=== PATIENT | male | born 1940 | race African-American/Black ===

== ENCOUNTER 2018-03-28 07:36 | Inpatient (IN) ==
[2018-03-28 09:23] LABS: Amorphous Crystals,Urine Occasional /HPF (Few); Apearance,Urine Slightly Hazy (Clear); Bacteria,Urine Many /HPF (Few); Bilirubin,Urine Negative (Negative); Blood, Urine Small mg/dL (Negative); Glucose,Urine (UA) Negative (Negative); Ketones,Urine Negative (Negative); Mucus,Urine Occasional /LPF (Occasional); Nitrite,Urine Negative (Negative); Protein,Urine 100 MG/DL; Squamous Epithelial Cell,Urine Occasional /HPF (0-10); Urine Color Yellow (Yellow); Urine Specific Gravity 1.023 (1.001-1.035); Urine Urobilinogen < 2.0 EU/DL (0.2-1.0); WBC,Urine 7 /HPF (0-6)
[2018-03-28 09:31] LABS: Basophils % 0.1 % (0.0-0.8); Hematocrit 22.1 VOL% (42.0-52.0); Immature Granulocytes % 1.4 %; Immature Granulocytes Absolute 0.35 #; Lymphocytes # 0.9 10*3/uL (1.4-4.0); Lymphocytes % 3.7 % (21.2-54.2); Mean Corpuscular Hemoglobin 20 PG (27-34); Mean Corpuscular Volume 67.6 FL (87-102); Mean Platelet Volume 10.1 FL (9.6-12.0); Monocytes # 2.6 10*3/uL (0.11-0.8); NRBC # 0.03 10*3/uL; Neutrophils # 21.8 10*3/uL (1.4-7.4); Neutrophils % 84.8 % (38.7-73.9); Platelet Count 374 T/CUMM (130-400); Red Blood Count 3.27 MC/CUMM (3.8-5.5); Red Cell Distribution Width 21.4 % (9.3-17.3); White Blood Count 25.7 T/CUMM (4-12)
[2018-03-28 09:46] LABS: Hemoglobin 6.4 GM/DL (14.0-18.0)
[2018-03-28 09:47] LABS: Albumin 2.7 G/DL (3.4-5.0); Bilirubin,Total 0.8 MG/DL (0.2-1.0); Calcium 8.7 MG/DL (8.5-10.1); Lactic Acid 1.8 MMOL/L (0.4-2.0); Osmolality,Calculated 280.3 MOS/KG (273-304); Potassium 3.6 MMOL/L (3.5-5.1); Total Protein 6.9 G/DL (6.4-8.3)
[2018-03-28 09:59] LABS: Anisocytosis 2+; Band Neutrophils 12 % (0-10); Lymphocytes 4 % (20-55); Nucleated Red Blood Cells 2 (0-5); Platelet Estimate Normal; Poikilocytosis 1+; Segmented Neutrophils 77 % (50-85); Smudge Cells Moderate; Total Cells Counted 100
[2018-03-28 10:00] LABS: Hypochromasia 1+; Polychromasia 1+; Target Cells Few
[2018-03-28] MEDS ORDERED: LEVOFLOXACIN INJ 750 MG in PREMIX 1 EACH IV STA (10:25)
[2018-03-28] MEDS ORDERED: SODIUM CHLORIDE 0.9% 1,000 ML IV PRN (11:21)
[2018-03-28] MEDS ORDERED: ONDANSETRON 4 MG/2 ML VIAL IV PRN (11:24)
[2018-03-28] MEDS ORDERED: PANTOPRAZOLE 40 MG TABLET PO SCH ×2 (11:30→14:30)
[2018-03-28] MEDS ORDERED: MAGNESIUM HYDROXIDE SUSP 30 ML UDCUP PO PRN (14:18)
[2018-03-28] MEDS: PIPERACILLIN/TAZOBACTAM 3,375 MG in SODIUM CHLORIDE 0.9% 100 ML IV SCH (18:32)
[2018-03-28] MEDS ORDERED: FUROSEMIDE 20 MG/2 ML VIAL IV ONE (18:59)
[2018-03-28] MEDS: ACETAMINOPHEN 325 MG TABLET PO PRN (20:06)
[2018-03-28] MEDS: DOCUSATE SODIUM 100 MG CAPSULE PO SCH (21:19)
[2018-03-28] MEDS: levETIRAcetam 500 MG TABLET PO SCH (21:19)
[2018-03-28] MEDS: TAMSULOSIN 0.4 MG CAPSULE PO SCH (21:19)
[2018-03-28] MEDS: CARVEDILOL 6.25 MG TABLET PO SCH (21:20)
[2018-03-28] MEDS: POLYETHYLENE GLYCOL POWDER 17 GM PACK PO SCH (21:20)
[2018-03-28] MEDS: DONEPEZIL 5 MG TABLET PO SCH (21:20)
[2018-03-28] MEDS: PANTOPRAZOLE 40 MG TABLET PO SCH (21:20)
[2018-03-29 01:17] LABS: Hemoglobin 8.2 GM/DL (14.0-18.0)
[2018-03-29] MEDS: PIPERACILLIN/TAZOBACTAM 3,375 MG in SODIUM CHLORIDE 0.9% 100 ML IV SCH ×3 (02:43→19:36)
[2018-03-29 05:45] LABS: Basophils % 0.2 % (0.0-0.8); Eosinophils % 0.2 % (0.00-10.9); Hematocrit 25.2 VOL% (42.0-52.0); Hemoglobin 8.1 GM/DL (14.0-18.0); Immature Granulocytes % 0.8 %; Immature Granulocytes Absolute 0.13 #; Lymphocytes # 1.2 10*3/uL (1.4-4.0); Lymphocytes % 7.3 % (21.2-54.2); Mean Corpuscular HGB Conc 32.1 GM/DL (32-36); Mean Corpuscular Hemoglobin 22 PG (27-34); Mean Corpuscular Volume 69.2 FL (87-102); Mean Platelet Volume 11.3 FL (9.6-12.0); Monocytes # 1.8 10*3/uL (0.11-0.8); Monocytes % 10.9 % (1.7-12.7); NRBC # 0.06 10*3/uL; Neutrophils # 13.5 10*3/uL (1.4-7.4); Neutrophils % 80.6 % (38.7-73.9); Platelet Count 365 T/CUMM (130-400); Red Blood Count 3.64 MC/CUMM (3.8-5.5); Red Cell Distribution Width 24.2 % (9.3-17.3); White Blood Count 16.7 T/CUMM (4-12)
[2018-03-29 06:20] LABS: Folate 6.4 NG/ML (5.4-24.0); Vitamin B12 817 PG/ML (211-911)
[2018-03-29 06:22] LABS: Hypochromasia 1+; Platelet Estimate Adequate
[2018-03-29 06:35] LABS: Calcium 8.4 MG/DL (8.5-10.1); Osmolality,Calculated 280.3 MOS/KG (273-304); Potassium 3.1 MMOL/L (3.5-5.1)
[2018-03-29 06:36] LABS: % Iron Saturation 11.1 % (18-50)
[2018-03-29 07:04] LABS: Basophils % 0.2 % (0.0-0.8); Eosinophils % 0.2 % (0.00-10.9); Hematocrit 25.9 VOL% (42.0-52.0); Immature Granulocytes % 0.7 %; Immature Granulocytes Absolute 0.12 #; Lymphocytes # 1.2 10*3/uL (1.4-4.0); Lymphocytes % 7.2 % (21.2-54.2); Mean Corpuscular HGB Conc 30.9 GM/DL (32-36); Mean Corpuscular Hemoglobin 22 PG (27-34); Mean Corpuscular Volume 70.6 FL (87-102); Mean Platelet Volume 11.1 FL (9.6-12.0); Monocytes # 1.8 10*3/uL (0.11-0.8); Monocytes % 10.8 % (1.7-12.7); NRBC # 0.06 10*3/uL; Neutrophils # 13.8 10*3/uL (1.4-7.4); Neutrophils % 80.9 % (38.7-73.9); Platelet Count 357 T/CUMM (130-400); Red Blood Count 3.67 MC/CUMM (3.8-5.5); Red Cell Distribution Width 24.3 % (9.3-17.3)
[2018-03-29 07:29] LABS: Hypochromasia 1+; Platelet Estimate Adequate
[2018-03-29 07:30] LABS: Ovalocytes Slight
[2018-03-29] MEDS: POTASSIUM CHLORIDE RIDER 10 MEQ in PREMIX 1 EACH IV SCH ×4 (07:32→15:12)
[2018-03-29 08:16] LABS: Sedimentation Rate-Westergren 45 MM/HR (0-20)
[2018-03-29 09:58] LABS: Hemoglobin A1 (Alkaline) 97.8 % (96.5-98.5); Hemoglobin A2 (Alkaline) 2.2 % (1.5-3.5)
[2018-03-29] MEDS ORDERED: PROPOFOL 200 MG/20 ML VIAL IV ONE (11:24)
[2018-03-29] MEDS ORDERED: PHENYLEPHRINE 1 MG/10 ML SYRINGE IV ONE (11:24)
[2018-03-29] MEDS ORDERED: LIDOCAINE 1% 5 ML VIAL ONE (11:24)
[2018-03-29] MEDS: CARVEDILOL 6.25 MG TABLET PO SCH ×2 (15:11→22:21)
[2018-03-29] MEDS: DOCUSATE SODIUM 100 MG CAPSULE PO SCH ×2 (15:11→22:20)
[2018-03-29] MEDS: levETIRAcetam 500 MG TABLET PO SCH ×2 (15:11→22:21)
[2018-03-29] MEDS: PANTOPRAZOLE 40 MG TABLET PO SCH ×2 (15:58→22:21)
[2018-03-29] MEDS: LOSARTAN 25 MG TABLET PO SCH (15:58)
[2018-03-29] MEDS: METOCLOPRAMIDE 10 MG/10 ML UDCUP PO SCH ×2 (15:58→22:20)
[2018-03-29] MEDS: ESCITALOPRAM 10 MG TABLET PO SCH (15:59)
[2018-03-29] MEDS: ASPIRIN EC 81 MG TABLET PO SCH (15:59)
[2018-03-29] MEDS: CALCIUM (CARBONATE)/VITAMIN D 500 MG-200 UNIT TABLET PO SCH (15:59)
[2018-03-29] MEDS: POLYETHYLENE GLYCOL POWDER 17 GM PACK PO SCH (22:20)
[2018-03-29] MEDS: DONEPEZIL 5 MG TABLET PO SCH (22:21)
[2018-03-29] MEDS: TAMSULOSIN 0.4 MG CAPSULE PO SCH (22:21)
[2018-03-30] MEDS: PIPERACILLIN/TAZOBACTAM 3,375 MG in SODIUM CHLORIDE 0.9% 100 ML IV SCH ×2 (01:50→10:41)
[2018-03-30] MEDS: METOCLOPRAMIDE 10 MG/10 ML UDCUP PO SCH ×4 (06:43→22:21)
[2018-03-30 09:16] LABS: Basophils % 0.2 % (0.0-0.8); Eosinophils # 0.1 10*3/uL (0.0-0.87); Hematocrit 26.1 VOL% (42.0-52.0); Immature Granulocytes % 0.4 %; Immature Granulocytes Absolute 0.05 #; Lymphocytes # 0.9 10*3/uL (1.4-4.0); Lymphocytes % 7.1 % (21.2-54.2); Mean Corpuscular HGB Conc 30.7 GM/DL (32-36); Mean Corpuscular Hemoglobin 22 PG (27-34); Mean Corpuscular Volume 70.9 FL (87-102); Mean Platelet Volume 9.9 FL (9.6-12.0); Monocytes # 1.4 10*3/uL (0.11-0.8); Monocytes % 11.1 % (1.7-12.7); NRBC # 0.03 10*3/uL; Neutrophils # 10.1 10*3/uL (1.4-7.4); Neutrophils % 80.2 % (38.7-73.9); Platelet Count 334 T/CUMM (130-400); Red Blood Count 3.68 MC/CUMM (3.8-5.5); White Blood Count 12.6 T/CUMM (4-12)
[2018-03-30 09:33] LABS: Hypochromasia 1+; Platelet Estimate Adequate
[2018-03-30 09:54] LABS: Calcium 8.3 MG/DL (8.5-10.1); Potassium 3.5 MMOL/L (3.5-5.1)
[2018-03-30] MEDS: levETIRAcetam 500 MG TABLET PO SCH ×2 (10:41→22:21)
[2018-03-30] MEDS: IRON (CARBONYL)/VIT C/B12/FA TABLET PO SCH (10:41)
[2018-03-30] MEDS: CALCIUM (CARBONATE)/VITAMIN D 500 MG-200 UNIT TABLET PO SCH (10:41)
[2018-03-30] MEDS: CARVEDILOL 6.25 MG TABLET PO SCH ×2 (10:42→22:22)
[2018-03-30] MEDS: DOCUSATE SODIUM 100 MG CAPSULE PO SCH ×2 (10:42→22:20)
[2018-03-30] MEDS: ASPIRIN EC 81 MG TABLET PO SCH (10:42)
[2018-03-30] MEDS: PANTOPRAZOLE 40 MG TABLET PO SCH ×2 (10:42→22:21)
[2018-03-30] MEDS: LOSARTAN 25 MG TABLET PO SCH (10:42)
[2018-03-30] MEDS: ESCITALOPRAM 10 MG TABLET PO SCH (10:42)
[2018-03-30] MEDS ORDERED: CIPROFLOXACIN 100 MG/ML 100 ML/BOTTLE PO SCH (15:00)
[2018-03-30] MEDS: CIPROFLOXACIN 100 MG/ML 100 ML/BOTTLE PO SCH (17:47)
[2018-03-30] MEDS: TAMSULOSIN 0.4 MG CAPSULE PO SCH (22:20)
[2018-03-30] MEDS: DONEPEZIL 5 MG TABLET PO SCH (22:20)
[2018-03-30] MEDS: POLYETHYLENE GLYCOL POWDER 17 GM PACK PO SCH (22:22)
[2018-03-31 05:31] LABS: Basophils % 0.3 % (0.0-0.8); Eosinophils # 0.1 10*3/uL (0.0-0.87); Eosinophils % 1.5 % (0.00-10.9); Hematocrit 24.8 VOL% (42.0-52.0); Hemoglobin 7.6 GM/DL (14.0-18.0); Immature Granulocytes % 0.7 %; Immature Granulocytes Absolute 0.07 #; Lymphocytes # 1.2 10*3/uL (1.4-4.0); Lymphocytes % 13.2 % (21.2-54.2); Mean Corpuscular HGB Conc 30.6 GM/DL (32-36); Mean Corpuscular Hemoglobin 21 PG (27-34); Mean Corpuscular Volume 69.5 FL (87-102); Mean Platelet Volume 10.5 FL (9.6-12.0); Monocytes # 1.2 10*3/uL (0.11-0.8); Monocytes % 12.8 % (1.7-12.7); NRBC # 0.03 10*3/uL; Neutrophils # 6.7 10*3/uL (1.4-7.4); Neutrophils % 71.5 % (38.7-73.9); Platelet Count 344 T/CUMM (130-400); Red Blood Count 3.57 MC/CUMM (3.8-5.5); Red Cell Distribution Width 25.7 % (9.3-17.3); White Blood Count 9.4 T/CUMM (4-12)
[2018-03-31 05:58] LABS: Acanthocytes Few; Hypochromasia 2+; Microcytosis 2+; Target Cells Few
[2018-03-31 05:59] LABS: Platelet Estimate Normal
[2018-03-31 06:00] LABS: Spherocytes Slight
[2018-03-31] MEDS: CIPROFLOXACIN 100 MG/ML 100 ML/BOTTLE PO SCH ×2 (06:39→17:33)
[2018-03-31] MEDS ORDERED: SODIUM CHLORIDE 0.9% 1,000 ML IV PRN (08:38)
[2018-03-31] MEDS ORDERED: FUROSEMIDE 20 MG/2 ML VIAL IV PRN (08:38)
[2018-03-31] MEDS: LOSARTAN 25 MG TABLET PO SCH (09:07)
[2018-03-31] MEDS: CARVEDILOL 6.25 MG TABLET PO SCH ×2 (09:07→21:56)
[2018-03-31] MEDS: METOCLOPRAMIDE 10 MG/10 ML UDCUP PO SCH ×4 (09:07→21:55)
[2018-03-31] MEDS: ASPIRIN EC 81 MG TABLET PO SCH (09:07)
[2018-03-31] MEDS: CALCIUM (CARBONATE)/VITAMIN D 500 MG-200 UNIT TABLET PO SCH (09:07)
[2018-03-31] MEDS: DOCUSATE SODIUM 100 MG CAPSULE PO SCH ×2 (09:07→21:54)
[2018-03-31] MEDS: levETIRAcetam 500 MG TABLET PO SCH ×2 (09:07→21:54)
[2018-03-31] MEDS: ESCITALOPRAM 10 MG TABLET PO SCH (09:07)
[2018-03-31] MEDS: IRON (CARBONYL)/VIT C/B12/FA TABLET PO SCH (09:07)
[2018-03-31] MEDS: PANTOPRAZOLE 40 MG TABLET PO SCH ×2 (09:08→21:54)
[2018-03-31] MEDS: ACETAMINOPHEN 325 MG TABLET PO PRN (21:53)
[2018-03-31] MEDS: DONEPEZIL 5 MG TABLET PO SCH (21:53)
[2018-03-31] MEDS: TAMSULOSIN 0.4 MG CAPSULE PO SCH (21:55)
[2018-03-31] MEDS: POLYETHYLENE GLYCOL POWDER 17 GM PACK PO SCH (21:55)
[2018-03-31 22:25] LABS: Hematocrit 31.9 VOL% (42.0-52.0)
[2018-03-31 22:26] LABS: Hemoglobin 10.2 GM/DL (14.0-18.0)
[2018-04-01] MEDS: CIPROFLOXACIN 100 MG/ML 100 ML/BOTTLE PO SCH (06:12)
[2018-04-01] MEDS: METOCLOPRAMIDE 10 MG/10 ML UDCUP PO SCH ×2 (06:44→11:40)
[2018-04-01 07:15] LABS: Basophils % 0.4 % (0.0-0.8); Eosinophils # 0.2 10*3/uL (0.0-0.87); Eosinophils % 2.1 % (0.00-10.9); Hematocrit 33.2 VOL% (42.0-52.0); Hemoglobin 10.2 GM/DL (14.0-18.0); Immature Granulocytes % 0.7 %; Immature Granulocytes Absolute 0.06 #; Lymphocytes # 1.6 10*3/uL (1.4-4.0); Lymphocytes % 17.4 % (21.2-54.2); Mean Corpuscular HGB Conc 30.7 GM/DL (32-36); Mean Corpuscular Hemoglobin 23 PG (27-34); Mean Corpuscular Volume 73.6 FL (87-102); Monocytes # 1.2 10*3/uL (0.11-0.8); Monocytes % 13.2 % (1.7-12.7); NRBC # 0.03 10*3/uL; Neutrophils # 6.1 10*3/uL (1.4-7.4); Neutrophils % 66.2 % (38.7-73.9); Platelet Count 352 T/CUMM (130-400); Red Blood Count 4.51 MC/CUMM (3.8-5.5); Red Cell Distribution Width 25.5 % (9.3-17.3); White Blood Count 9.2 T/CUMM (4-12)
[2018-04-01 07:40] LABS: Acanthocytes Few; Hypochromasia 2+; Microcytosis 1+; Poikilocytosis 1+; Polychromasia Slight; Target Cells Few
[2018-04-01 07:41] LABS: Anisocytosis 1+; Platelet Estimate Normal
[2018-04-01] MEDS: PANTOPRAZOLE 40 MG TABLET PO SCH (09:52)
[2018-04-01] MEDS: levETIRAcetam 500 MG TABLET PO SCH (09:52)
[2018-04-01] MEDS: ASPIRIN EC 81 MG TABLET PO SCH (09:53)
[2018-04-01] MEDS: CALCIUM (CARBONATE)/VITAMIN D 500 MG-200 UNIT TABLET PO SCH (09:53)
[2018-04-01] MEDS: ESCITALOPRAM 10 MG TABLET PO SCH (09:53)
[2018-04-01] MEDS: DOCUSATE SODIUM 100 MG CAPSULE PO SCH (09:53)
[2018-04-01] MEDS: IRON (CARBONYL)/VIT C/B12/FA TABLET PO SCH (09:53)
[2018-04-01] MEDS: LOSARTAN 25 MG TABLET PO SCH (09:53)
[2018-04-01] MEDS: CARVEDILOL 6.25 MG TABLET PO SCH (09:54)
[2018-04-01 15:38] VITALS: BP 138/71
== END 2018-04-01 13:52 | DRG 377 ==
LOC: EDUNIT# → EDBD → N.ED 07:36 → SUATTDRO 11:24 → N.EDINP 11:24 → N.5E 12:11
PROVIDERS: ADMIT Hospitalist; ATTEND Internal Medicine

== ENCOUNTER 2018-04-09 12:37 | Inpatient (IN) ==
[2018-04-09] MEDS ORDERED: LEVOFLOXACIN INJ 750 MG in PREMIX 1 EACH IV STA (13:01)
[2018-04-09] MEDS ORDERED: ONDANSETRON 4 MG/2 ML VIAL IV STA (13:01)
[2018-04-09] MEDS ORDERED: methylPREDNISolone SOD SUC 125 MG/2 ML VIAL IV STA (13:01)
[2018-04-09] MEDS ORDERED: FUROSEMIDE 100 MG/10 ML VIAL IV STA (13:01)
[2018-04-09] MEDS ORDERED: ALBUTEROL 2.5 MG/3 ML NEB RESP TX SCH (13:30)
[2018-04-09 13:48] LABS: Basophils % 0.3 % (0.0-0.8); Hematocrit 37.7 VOL% (42.0-52.0); Hemoglobin 11.7 GM/DL (14.0-18.0); Immature Granulocytes % 0.8 %; Lymphocytes # 0.6 10*3/uL (1.4-4.0); Lymphocytes % 5.2 % (21.2-54.2); Mean Corpuscular Hemoglobin 23 PG (27-34); Mean Corpuscular Volume 74.5 FL (87-102); Mean Platelet Volume 10.6 FL (9.6-12.0); Monocytes # 0.4 10*3/uL (0.11-0.8); Monocytes % 3.3 % (1.7-12.7); Neutrophils # 11.1 10*3/uL (1.4-7.4); Neutrophils % 90.4 % (38.7-73.9); Platelet Count 575 T/CUMM (130-400); Red Blood Count 5.06 MC/CUMM (3.8-5.5); Red Cell Distribution Width 27.4 % (9.3-17.3); White Blood Count 12.3 T/CUMM (4-12)
[2018-04-09 13:57] LABS: INR 1.4; PT Patient Result 15.1 SECS; Partial Thromboplastin Time 25.7 SECS (0-40)
[2018-04-09 14:09] LABS: Alanine Aminotransferase 46 U/L (16-61); Albumin 2.8 G/DL (3.4-5.0); Alkaline Phosphatase 195 U/L (45-117); Aspartate Amino Transferase 41 U/L (0-37); Blood Urea Nitrogen 10 MG/DL (7-18); Calcium 9.1 MG/DL (8.5-10.1); Glucose 167 MG/DL (74-106); Osmolality,Calculated 283.3 MOS/KG (273-304); Potassium 3.7 MMOL/L (3.5-5.1); Sodium 141 MMOL/L (136-145)
[2018-04-09] MEDS ORDERED: hydrALAZINE 20 MG/1 ML VIAL IV STA (14:10)
[2018-04-09 14:16] LABS: Apearance,Urine CLEAR (Clear); Bacteria,Urine Occasional /HPF (Few); Bilirubin,Urine Negative (Negative); Blood, Urine Negative (Negative); Glucose,Urine (UA) Negative (Negative); Ketones,Urine Negative (Negative); Nitrite,Urine Negative (Negative); Protein,Urine Negative; RBC,Urine 1 /HPF (0-4); Urine Color Straw (Yellow); Urine Specific Gravity 1.004 (1.001-1.035); Urine Urobilinogen < 2.0 EU/DL (0.2-1.0); WBC,Urine 1 /HPF (0-6)
[2018-04-09] MEDS ORDERED: ONDANSETRON 4 MG/2 ML VIAL IV PRN (15:30)
[2018-04-09] MEDS ORDERED: ACETAMINOPHEN 325 MG TABLET PO PRN (15:30)
[2018-04-09] MEDS ORDERED: ALBUTEROL/IPRATROPIUM 3 ML NEB RESP TX PRN (15:33)
[2018-04-09] MEDS ORDERED: hydrALAZINE 20 MG/1 ML VIAL IV PRN (15:50)
[2018-04-09] MEDS: FUROSEMIDE 40 MG/4 ML VIAL IV SCH (16:40)
[2018-04-09] MEDS: cefTRIAXone 1,000 MG in SYRINGE 1 EACH IV SCH (16:44)
[2018-04-09] MEDS: AZITHROMYCIN INJ 500 MG in SODIUM CHLORIDE 0.9% 250 ML IV SCH (16:51)
[2018-04-09] MEDS: ALBUTEROL 2.5 MG/3 ML NEB RESP TX SCH (19:23)
[2018-04-10] MEDS: ALBUTEROL 2.5 MG/3 ML NEB RESP TX SCH ×4 (00:27→19:13)
[2018-04-10 05:17] LABS: Basophils % 0.1 % (0.0-0.8); Hematocrit 35.6 VOL% (42.0-52.0); Hemoglobin 11.2 GM/DL (14.0-18.0); Immature Granulocytes % 0.7 %; Immature Granulocytes Absolute 0.07 #; Lymphocytes # 0.5 10*3/uL (1.4-4.0); Mean Corpuscular HGB Conc 31.5 GM/DL (32-36); Mean Corpuscular Hemoglobin 23 PG (27-34); Mean Corpuscular Volume 72.1 FL (87-102); Mean Platelet Volume 10.2 FL (9.6-12.0); Monocytes # 0.4 10*3/uL (0.11-0.8); Monocytes % 3.8 % (1.7-12.7); Neutrophils # 9.2 10*3/uL (1.4-7.4); Neutrophils % 90.4 % (38.7-73.9); Platelet Count 551 T/CUMM (130-400); Red Blood Count 4.94 MC/CUMM (3.8-5.5); Red Cell Distribution Width 27.4 % (9.3-17.3); White Blood Count 10.2 T/CUMM (4-12)
[2018-04-10 05:52] LABS: Calcium 8.6 MG/DL (8.5-10.1); Potassium 3.1 MMOL/L (3.5-5.1)
[2018-04-10 06:14] LABS: Hypochromasia 2+
[2018-04-10 06:15] LABS: Microcytosis 2+; Ovalocytes Slight; Platelet Estimate Increased; Target Cells Few
[2018-04-10] MEDS: FUROSEMIDE 40 MG/4 ML VIAL IV SCH (08:04)
[2018-04-10] MEDS ORDERED: PANTOPRAZOLE 40 MG TABLET PO SCH (09:00)
[2018-04-10] MEDS: POTASSIUM CHLORIDE INJ 30 MEQ in SODIUM CHLORIDE 0.9% 1,000 ML IV SCH (10:55)
[2018-04-10] MEDS: cefTRIAXone 1,000 MG in SYRINGE 1 EACH IV SCH (17:48)
[2018-04-10] MEDS: AZITHROMYCIN INJ 500 MG in SODIUM CHLORIDE 0.9% 250 ML IV SCH (17:49)
[2018-04-11] MEDS: ALBUTEROL 2.5 MG/3 ML NEB RESP TX SCH ×4 (00:16→19:27)
[2018-04-11] MEDS: POTASSIUM CHLORIDE INJ 30 MEQ in SODIUM CHLORIDE 0.9% 1,000 ML IV SCH ×2 (04:12→21:21)
[2018-04-11 06:39] LABS: Calcium 8.5 MG/DL (8.5-10.1); Osmolality,Calculated 290.6 MOS/KG (273-304); Potassium 3.5 MMOL/L (3.5-5.1)
[2018-04-11] MEDS ORDERED: AZITHROMYCIN 250 MG TABLET PO SCH (09:00)
[2018-04-11] MEDS: AZITHROMYCIN INJ 500 MG in SODIUM CHLORIDE 0.9% 250 ML IV SCH (11:21)
[2018-04-11] MEDS: cefTRIAXone 1,000 MG in SYRINGE 1 EACH IV SCH (16:37)
[2018-04-12] MEDS: ALBUTEROL 2.5 MG/3 ML NEB RESP TX SCH ×4 (00:15→19:15)
[2018-04-12 05:43] LABS: Calcium 8.6 MG/DL (8.5-10.1); Osmolality,Calculated 293.4 MOS/KG (273-304); Potassium 3.8 MMOL/L (3.5-5.1)
[2018-04-12] MEDS: AZITHROMYCIN INJ 500 MG in SODIUM CHLORIDE 0.9% 250 ML IV SCH (12:17)
[2018-04-12] MEDS: POTASSIUM CHLORIDE INJ 30 MEQ in SODIUM CHLORIDE 0.9% 1,000 ML IV SCH (18:04)
[2018-04-12] MEDS: cefTRIAXone 1,000 MG in SYRINGE 1 EACH IV SCH (18:05)
[2018-04-13] MEDS: ALBUTEROL 2.5 MG/3 ML NEB RESP TX SCH ×4 (00:24→19:25)
[2018-04-13] MEDS: AZITHROMYCIN INJ 500 MG in SODIUM CHLORIDE 0.9% 250 ML IV SCH (10:45)
[2018-04-13] MEDS: cefTRIAXone 1,000 MG in SYRINGE 1 EACH IV SCH (22:21)
[2018-04-14] MEDS: ALBUTEROL 2.5 MG/3 ML NEB RESP TX SCH ×4 (00:10→18:59)
[2018-04-14 05:24] LABS: Calcium 8.8 MG/DL (8.5-10.1); Osmolality,Calculated 308.4 MOS/KG (273-304)
[2018-04-14] MEDS: POTASSIUM CHLORIDE INJ 30 MEQ in SODIUM CHLORIDE 0.9% 1,000 ML IV SCH ×2 (06:22→09:48)
[2018-04-14] MEDS: DEXTROSE 5% 1,000 ML IV SCH (08:49)
[2018-04-14] MEDS ORDERED: GLUCAGON 1 MG VIAL IM PRN (11:32)
[2018-04-14] MEDS ORDERED: DEXTROSE 50% 25 GM/50 ML VIAL IV PRN (11:32)
[2018-04-14] MEDS: INSULIN REGULAR 100 UNIT/ML SUBCUT SCH ×2 (11:47→18:32)
[2018-04-14] MEDS: cefTRIAXone 1,000 MG in SYRINGE 1 EACH IV SCH (22:33)
[2018-04-15] MEDS: ALBUTEROL 2.5 MG/3 ML NEB RESP TX SCH ×4 (00:29→19:13)
[2018-04-15] MEDS: INSULIN REGULAR 100 UNIT/ML SUBCUT SCH ×4 (04:24→17:36)
[2018-04-15 06:39] LABS: Calcium 8.6 MG/DL (8.5-10.1); Osmolality,Calculated 308.6 MOS/KG (273-304); Potassium 3.6 MMOL/L (3.5-5.1)
[2018-04-15] MEDS ORDERED: FUROSEMIDE 40 MG/4 ML VIAL IV ONE (08:02)
[2018-04-15] MEDS: DEXTROSE 5% 1,000 ML IV SCH (08:16)
[2018-04-15] MEDS: ACETAMINOPHEN 325 MG/10.15 ML UDCUP PO PRN (12:21)
[2018-04-15] MEDS: FUROSEMIDE 20 MG/2 ML VIAL IV SCH (15:11)
[2018-04-15] MEDS: cefTRIAXone 1,000 MG in SYRINGE 1 EACH IV SCH (21:25)
[2018-04-15] MEDS: levETIRAcetam LIQUID 100 MG/ML 30 ML/BOTTLE NG SCH (21:25)
[2018-04-16] MEDS: ALBUTEROL 2.5 MG/3 ML NEB RESP TX SCH ×4 (00:39→19:30)
[2018-04-16] MEDS: INSULIN REGULAR 100 UNIT/ML SUBCUT SCH ×4 (00:44→19:03)
[2018-04-16 05:15] LABS: Calcium 8.8 MG/DL (8.5-10.1); Osmolality,Calculated 311.6 MOS/KG (273-304); Potassium 3.3 MMOL/L (3.5-5.1)
[2018-04-16] MEDS: FUROSEMIDE 20 MG/2 ML VIAL IV SCH (09:29)
[2018-04-16] MEDS: levETIRAcetam LIQUID 100 MG/ML 30 ML/BOTTLE NG SCH ×2 (09:29→22:20)
[2018-04-16 11:20] LABS: ABG Base Excess 9.8 MMOL/L (-2.5-2.5); ABG HCO3 33.5 MMOL/L (20-26); ABG Oxygen Saturation 96.9 % (95-100); ABG PH 7.574 (7.35-7.45); ABG PO2 84.7 MM HG (80-95); ABG TCO2 28.8 MMOL/L (23-27)
[2018-04-16] MEDS: POTASSIUM CHLORIDE 20 MEQ/15 ML UDCUP PER TUBE PRN ×3 (11:50→16:45)
[2018-04-17] MEDS: cefTRIAXone 1,000 MG in SYRINGE 1 EACH IV SCH ×2 (00:05→21:38)
[2018-04-17] MEDS: INSULIN REGULAR 100 UNIT/ML SUBCUT SCH ×4 (00:33→18:59)
[2018-04-17] MEDS: ALBUTEROL 2.5 MG/3 ML NEB RESP TX SCH ×4 (01:14→19:17)
[2018-04-17 06:37] LABS: Calcium 8.8 MG/DL (8.5-10.1); Osmolality,Calculated 301.1 MOS/KG (273-304); Potassium 3.5 MMOL/L (3.5-5.1)
[2018-04-17] MEDS: levETIRAcetam LIQUID 100 MG/ML 30 ML/BOTTLE NG SCH ×2 (08:31→21:38)
[2018-04-17] MEDS: POTASSIUM CHLORIDE 20 MEQ/15 ML UDCUP PER TUBE PRN ×2 (08:31→11:06)
[2018-04-17] MEDS: ACETAMINOPHEN 325 MG/10.15 ML UDCUP PO PRN (12:22)
[2018-04-17] MEDS ORDERED: IBUPROFEN 100 MG/5 ML UDCUP PO PRN (14:23)
[2018-04-17 17:04] LABS: Apearance,Urine Slightly Hazy (Clear); Bacteria,Urine Occasional /HPF (Few); Bilirubin,Urine Negative (Negative); Blood, Urine Negative (Negative); Glucose,Urine (UA) Negative (Negative); Ketones,Urine Negative (Negative); Mucus,Urine Occasional /LPF (Occasional); Nitrite,Urine Negative (Negative); Protein,Urine 100 MG/DL; RBC,Urine 3 /HPF (0-4); Squamous Epithelial Cell,Urine Occasional /HPF (0-10); Urine Color Yellow (Yellow); Urine Specific Gravity 1.016 (1.001-1.035); Urine Urobilinogen < 2.0 EU/DL (0.2-1.0); WBC,Urine 2 /HPF (0-6)
[2018-04-18] MEDS: INSULIN REGULAR 100 UNIT/ML SUBCUT SCH ×4 (01:13→18:31)
[2018-04-18] MEDS: ALBUTEROL 2.5 MG/3 ML NEB RESP TX SCH ×5 (01:14→19:40)
[2018-04-18 04:29] LABS: Basophils % 0.3 % (0.0-0.8); Eosinophils # 0.3 10*3/uL (0.0-0.87); Eosinophils % 1.8 % (0.00-10.9); Hematocrit 34.6 VOL% (42.0-52.0); Hemoglobin 10.2 GM/DL (14.0-18.0); Immature Granulocytes % 0.5 %; Immature Granulocytes Absolute 0.08 #; Lymphocytes # 1.2 10*3/uL (1.4-4.0); Lymphocytes % 7.9 % (21.2-54.2); Mean Corpuscular HGB Conc 29.5 GM/DL (32-36); Mean Corpuscular Hemoglobin 22 PG (27-34); Mean Corpuscular Volume 75.2 FL (87-102); Monocytes # 1.4 10*3/uL (0.11-0.8); Monocytes % 9.2 % (1.7-12.7); Neutrophils # 11.8 10*3/uL (1.4-7.4); Neutrophils % 80.3 % (38.7-73.9); Platelet Count 361 T/CUMM (130-400); White Blood Count 14.7 T/CUMM (4-12)
[2018-04-18] MEDS: levETIRAcetam LIQUID 100 MG/ML 30 ML/BOTTLE NG SCH ×2 (08:27→21:55)
[2018-04-18] MEDS: cefTRIAXone 1,000 MG in SYRINGE 1 EACH IV SCH (21:43)
[2018-04-19] MEDS: ALBUTEROL 2.5 MG/3 ML NEB RESP TX SCH ×4 (01:50→19:19)
[2018-04-19] MEDS: INSULIN REGULAR 100 UNIT/ML SUBCUT SCH ×5 (03:03→23:24)
[2018-04-19 06:13] LABS: Calcium 8.7 MG/DL (8.5-10.1); Osmolality,Calculated 293.8 MOS/KG (273-304); Prealbumin 8.7 MG/DL (20-40)
[2018-04-19] MEDS: levETIRAcetam LIQUID 100 MG/ML 30 ML/BOTTLE NG SCH ×2 (08:46→21:46)
[2018-04-19] MEDS: cefTRIAXone 1,000 MG in SYRINGE 1 EACH IV SCH (21:40)
[2018-04-20] MEDS: ALBUTEROL 2.5 MG/3 ML NEB RESP TX SCH ×4 (00:32→19:20)
[2018-04-20] MEDS: INSULIN REGULAR 100 UNIT/ML SUBCUT SCH ×3 (06:06→17:05)
[2018-04-20] MEDS: levETIRAcetam LIQUID 100 MG/ML 30 ML/BOTTLE NG SCH ×2 (08:45→21:50)
[2018-04-20] MEDS: cefTRIAXone 1,000 MG in SYRINGE 1 EACH IV SCH (21:50)
[2018-04-20] MEDS: ACETAMINOPHEN 325 MG/10.15 ML UDCUP PO PRN (22:24)
[2018-04-21] MEDS: INSULIN REGULAR 100 UNIT/ML SUBCUT SCH ×4 (00:01→18:09)
[2018-04-21] MEDS: ALBUTEROL 2.5 MG/3 ML NEB RESP TX SCH ×4 (00:23→19:51)
[2018-04-21 08:04] LABS: Basophils % 0.3 % (0.0-0.8); Eosinophils # 0.3 10*3/uL (0.0-0.87); Eosinophils % 2.5 % (0.00-10.9); Hematocrit 34.5 VOL% (42.0-52.0); Hemoglobin 10.2 GM/DL (14.0-18.0); Immature Granulocytes % 0.6 %; Immature Granulocytes Absolute 0.07 #; Lymphocytes # 1.3 10*3/uL (1.4-4.0); Lymphocytes % 11.1 % (21.2-54.2); Mean Corpuscular HGB Conc 29.6 GM/DL (32-36); Mean Corpuscular Hemoglobin 23 PG (27-34); Mean Corpuscular Volume 76.7 FL (87-102); Monocytes % 8.5 % (1.7-12.7); Platelet Count 267 T/CUMM (130-400); Red Cell Distribution Width 27.7 % (9.3-17.3); White Blood Count 11.7 T/CUMM (4-12)
[2018-04-21 08:12] LABS: INR 1.2; PT Patient Result 12.7 SECS; Partial Thromboplastin Time 27.3 SECS (0-40)
[2018-04-21] MEDS: levETIRAcetam LIQUID 100 MG/ML 30 ML/BOTTLE NG SCH ×2 (08:19→21:08)
[2018-04-21 08:20] LABS: Calcium 8.6 MG/DL (8.5-10.1); Osmolality,Calculated 288.8 MOS/KG (273-304); Potassium 3.8 MMOL/L (3.5-5.1)
[2018-04-21 08:22] LABS: Hypochromasia 1+; Ovalocytes Slight; Platelet Estimate Adequate
[2018-04-21 08:23] LABS: Microcytosis Slight
[2018-04-21] MEDS ORDERED: LIDOCAINE 100 MG/5 ML SYRINGE ONE (09:00)
[2018-04-21] MEDS: cefTRIAXone 1,000 MG in SYRINGE 1 EACH IV SCH (22:13)
[2018-04-22] MEDS: ALBUTEROL 2.5 MG/3 ML NEB RESP TX SCH ×2 (00:31→07:19)
[2018-04-22] MEDS: INSULIN REGULAR 100 UNIT/ML SUBCUT SCH ×3 (00:34→11:41)
[2018-04-22 05:55] LABS: Calcium 8.2 MG/DL (8.5-10.1); Osmolality,Calculated 292.7 MOS/KG (273-304); Prealbumin 11.5 MG/DL (20-40)
[2018-04-22] MEDS: levETIRAcetam LIQUID 100 MG/ML 30 ML/BOTTLE NG SCH (09:33)
[2018-04-22 11:55] VITALS: BP 131/72
== END 2018-04-22 12:13 | DRG 177 ==
LOC: EDBD → EDUNIT# → N.ED 12:37 → SUATTDRO 15:30 → N.EDINP 15:30 → N.2E 17:01
PROVIDERS: ADMIT Internal Medicine Geriatric Medicine; ATTEND Internal Medicine
PROC: EGDWPEG (ICD-10-PCS; 2018-04-21 12:05)